=== PATIENT | female | born 1985 | race African-American/Black ===

== ENCOUNTER 2016-12-05 12:43 | Emergency (ER) | payer MEDICAID ==
[~2016-12-05] VITALS: Ht 182.9 cm; Wt 125.0 kg
[2016-12-05] MEDS ORDERED: KETOROLAC 30MG/ML VIAL IM ONE (14:30)
[2016-12-05] MEDS ORDERED: AMOXICILLIN/POTASSIUM CLAVULANATE 875/125MG TAB PO ONE (14:30)
[2016-12-05] MEDS ORDERED: DEXAMETHASONE 10MG/ML 1ML VIAL IM ONE (14:30)
[2016-12-05 15:04] VITALS: BP 125/50
== END 2016-12-05 15:57 | disposition home or self-care (01) ==
LOC: ER 14:35
DX: J36 Peritonsillar abscess (principal); J45.909 Unspecified asthma, uncomplicated; F17.210 Nicotine dependence, cigarettes, uncomplicated; F12.90 Cannabis use, unspecified, uncomplicated
CPT/HCPCS: 96372; 99284; J1100; J1885; Z7610

== ENCOUNTER 2017-02-07 12:30 | Emergency (ER) | payer MEDICAID ==
[~2017-02-07] VITALS: Ht 182.9 cm; Wt 118.0 kg
[2017-02-07] MEDS ORDERED: KETOROLAC 60MG/2ML VIAL IM ONE (18:15)
[2017-02-07 19:22] VITALS: BP 137/84
== END 2017-02-07 19:40 | disposition home or self-care (01) ==
LOC: ER 13:55
DX: R51 Headache (principal); J45.909 Unspecified asthma, uncomplicated; F17.210 Nicotine dependence, cigarettes, uncomplicated; F12.10 Cannabis abuse, uncomplicated
CPT/HCPCS: 81025; 96372; 99283; J1885